=== PATIENT | male | born 1990 | race Caucasian/White ===

== ENCOUNTER 2020-11-24 08:44 | Emergency (ER) | payer OTHER ==
[~2020-11-24 08:44] MED LIST: CIPRO500 MG PO; METRONIDAZOLE500 MG PO
[2020-11-24 09:40] LABS: BASOPHIL 0.3 % (0-2); EOSINOPHIL 0.3 % (0-5); HCT 47.6 % (42.0-52.0); HGB 16.3 g/dl (13.2-18.0); MCH 29.9 pg (25.0-31.0); MCHC 34.2 g/dL (32.0-36.0); MCV 87.2 fL (78.0-100.0); MONOCYTE 8.8 % (0-12); MPV 8.8 fL (6.0-9.5); NRBC 0; PLT 261 K/uL (150-400); RBC 5.46 M/uL (4.70-6.00); RDW 12.3 % (11.5-14.0); WBC 15.3 K/uL (4.0-10.5)
[2020-11-24 09:41] LABS: BILIRUBIN 1+ mg/dL (NEGATIVE); BLOOD NEGATIVE Ery/uL (NEGATIVE); CLARITY CLEAR (CLEAR); COLOR YELLOW (YELLOW); GLUCOSE (U) NORMAL (NORMAL); LEUKOCYTES NEGATIVE Leu/uL (NEGATIVE); NITRITE NEGATIVE (NEGATIVE); PROTEIN NEGATIVE (NEGATIVE); SPECIFIC GRAVITY >=1.030 (1.001-1.030); UROBILINOGEN 0.2 mg/dL (0.2-1.0)
[2020-11-24 10:00] LABS: ALBUMIN 4.3 g/dL (3.4-5.0); BILIRUBIN - TOTAL 1.1 mg/dL (0.2-1.0); CREATININE 0.91 mg/dL (0.67-1.17); GLOBULIN (CALCULATION) 3.7 g/dL; POTASSIUM 3.7 mmol/L (3.5-5.1)
[2020-11-24] MEDS ORDERED: ONDANSETRON ODT4 MG PO (11:48)
[2020-11-24] MEDS ORDERED: LEVAQUIN500 MG PO (11:48)
[2020-11-24] MEDS ORDERED: METRONIDAZOLE500 MG PO (11:48)
[2020-11-24] MEDS ORDERED: COLACE100 M1 PO (11:48)
[2020-11-24] MEDS ORDERED: NORCO 5-325 TA1 EACH PO (11:48)
== END 2020-11-24 12:23 | disposition home or self-care (01) ==
LOC: FER 08:44
PROVIDERS: Emergency Medicine
DX: Z53.8 Procedure and treatment not carried out for other reasons (principal)
CPT/HCPCS: 36415; 80053; 81003; 83690; 85025; J1170; J2405; J2543

== ENCOUNTER 2020-11-25 20:34 | Inpatient (IN) | payer OTHER ==
[~2020-11-25 20:34] MED LIST changes: +COLACE100 M1 PO; +LEVAQUIN500 MG PO; +NORCO 5-325 TA1 EACH PO; +ONDANSETRON ODT4 MG PO
[2020-11-25 21:12] LABS: BASOPHIL 0.1 % (0-2); EOSINOPHIL 0 % (0-5); HCT 44.3 % (42.0-52.0); HGB 15.1 g/dl (13.2-18.0); LYMPHOCYTE 8.3 % (15-48); MCH 29.8 pg (25.0-31.0); MCHC 34.1 g/dL (32.0-36.0); MCV 87.4 fL (78.0-100.0); MPV 8.6 fL (6.0-9.5); NEUTROPHIL 82.3 % (41-80); NRBC 0; PLT 236 K/uL (150-400); RBC 5.07 M/uL (4.70-6.00); RDW 12.3 % (11.5-14.0); WBC 16.7 K/uL (4.0-10.5)
[2020-11-25 21:35] LABS: ALBUMIN 3.7 g/dL (3.4-5.0); BILIRUBIN - TOTAL 2.1 mg/dL (0.2-1.0); BUN/CREAT RATIO (CALC) 7.8 RATIO; CREATININE 1.02 mg/dL (0.67-1.17); GLOBULIN (CALCULATION) 4.2 g/dL; POTASSIUM 3.9 mmol/L (3.5-5.1); TOTAL PROTEIN 7.9 g/dL (6.4-8.2)
[2020-11-25 21:38] LABS: BILIRUBIN NEGATIVE (NEGATIVE); BLOOD NEGATIVE Ery/uL (NEGATIVE); CLARITY CLEAR (CLEAR); COLOR YELLOW (YELLOW); GLUCOSE (U) NORMAL (NORMAL); LEUKOCYTES NEGATIVE Leu/uL (NEGATIVE); NITRITE NEGATIVE (NEGATIVE); PROTEIN NEGATIVE (NEGATIVE); SPECIFIC GRAVITY 1.025 (1.001-1.030); UROBILINOGEN 0.2 mg/dL (0.2-1.0); pH 6.5 (5.0-9.0)
[2020-11-25 23:13] LABS: LACTIC ACID 0.8 mmol/L (0.4-1.9)
[2020-11-26 00:09] LABS: CORONAVIRUS 2019 SARS-COV-2 POSITIVE (NEGATIVE); INFLUENZA A NAA NEGATIVE (NEGATIVE)
[2020-11-26 05:55] LABS: BASOPHIL 0.2 % (0-2); EOSINOPHIL 0.2 % (0-5); HCT 40.7 % (42.0-52.0); HGB 13.5 g/dl (13.2-18.0); LYMPHOCYTE 17.8 % (15-48); MCH 29.5 pg (25.0-31.0); MCHC 33.2 g/dL (32.0-36.0); MCV 89.1 fL (78.0-100.0); MONOCYTE 9.7 % (0-12); NEUTROPHIL 71.8 % (41-80); NRBC 0; PLT 235 K/uL (150-400); RBC 4.57 M/uL (4.70-6.00); RDW 12.2 % (11.5-14.0); WBC 11.8 K/uL (4.0-10.5)
[2020-11-26 06:10] LABS: ALBUMIN 3.1 g/dL (3.4-5.0); BILIRUBIN - TOTAL 1.5 mg/dL (0.2-1.0); BUN/CREAT RATIO (CALC) 8.7 RATIO; CREATININE 1.03 mg/dL (0.67-1.17); GLOBULIN (CALCULATION) 3.8 g/dL; POTASSIUM 3.7 mmol/L (3.5-5.1); TOTAL PROTEIN 6.9 g/dL (6.4-8.2)
[2020-11-27 06:56] LABS: BASOPHIL 0.4 % (0-2); EOSINOPHIL 1.3 % (0-5); HCT 39.4 % (42.0-52.0); HGB 13.1 g/dl (13.2-18.0); LYMPHOCYTE 24.2 % (15-48); MCH 29.8 pg (25.0-31.0); MCHC 33.2 g/dL (32.0-36.0); MCV 89.7 fL (78.0-100.0); MONOCYTE 10.2 % (0-12); NEUTROPHIL 63.6 % (41-80); NRBC 0; PLT 247 K/uL (150-400); RBC 4.39 M/uL (4.70-6.00); RDW 12.2 % (11.5-14.0); WBC 7.6 K/uL (4.0-10.5)
[2020-11-27 07:25] LABS: ALKALINE PHOSHATASE 54 U/L (46-116); ALT 33 U/L (16-63); AST 15 U/L (15-37); BILIRUBIN - TOTAL 0.7 mg/dL (0.2-1.0); BUN 8 mg/dL (7-18); C-REACTIVE PROTEIN >18.00 mg/dL (<=0.90); CHLORIDE 103 mmol/L (98-107); CO2 (BICARBONATE) 27 mmol/L (21-32); CREATININE 1.14 mg/dL (0.67-1.17); GLOBULIN (CALCULATION) 3.8 g/dL; GLUCOSE 80 mg/dL (74-106); TOTAL PROTEIN 6.8 g/dL (6.4-8.2)
[2020-11-28 03:42] LABS: BASOPHIL 0.4 % (0-2); EOSINOPHIL 1.6 % (0-5); HCT 38.1 % (42.0-52.0); HGB 12.8 g/dl (13.2-18.0); LYMPHOCYTE 27.8 % (15-48); MCH 29.8 pg (25.0-31.0); MCHC 33.6 g/dL (32.0-36.0); MCV 88.8 fL (78.0-100.0); MPV 8.8 fL (6.0-9.5); NEUTROPHIL 60.9 % (41-80); NRBC 0; PLT 270 K/uL (150-400); RBC 4.29 M/uL (4.70-6.00); WBC 7.9 K/uL (4.0-10.5)
[2020-11-28 04:03] LABS: BUN/CREAT RATIO (CALC) 7.8 RATIO; C-REACTIVE PROTEIN 11.1 mg/dL (<=0.90); CREATININE 1.03 mg/dL (0.67-1.17); POTASSIUM 3.8 mmol/L (3.5-5.1)
[2020-11-29 06:18] LABS: BASOPHIL 0.3 % (0-2); EOSINOPHIL 1.6 % (0-5); HCT 40.2 % (42.0-52.0); HGB 13.6 g/dl (13.2-18.0); LYMPHOCYTE 23.8 % (15-48); MCH 29.6 pg (25.0-31.0); MCHC 33.8 g/dL (32.0-36.0); MCV 87.6 fL (78.0-100.0); MONOCYTE 8.4 % (0-12); MPV 8.7 fL (6.0-9.5); NEUTROPHIL 65.6 % (41-80); NRBC 0; PLT 279 K/uL (150-400); RBC 4.59 M/uL (4.70-6.00)
[2020-11-29 07:06] LABS: ALBUMIN 3.1 g/dL (3.4-5.0); BILIRUBIN - TOTAL 0.7 mg/dL (0.2-1.0); BUN/CREAT RATIO (CALC) 5.7 RATIO; CREATININE 1.05 mg/dL (0.67-1.17); GLOBULIN (CALCULATION) 3.7 g/dL; POTASSIUM 3.8 mmol/L (3.5-5.1); TOTAL PROTEIN 6.8 g/dL (6.4-8.2)
[2020-11-30 03:51] LABS: BASOPHIL 0.2 % (0-2); EOSINOPHIL 0.8 % (0-5); HCT 42.2 % (42.0-52.0); HGB 14.6 g/dl (13.2-18.0); MCHC 34.6 g/dL (32.0-36.0); MCV 86.7 fL (78.0-100.0); MONOCYTE 7.4 % (0-12); MPV 8.6 fL (6.0-9.5); NEUTROPHIL 74.2 % (41-80); NRBC 0; PLT 293 K/uL (150-400); RBC 4.87 M/uL (4.70-6.00); WBC 11.2 K/uL (4.0-10.5)
[2020-11-30 04:19] LABS: ALBUMIN 3.2 g/dL (3.4-5.0); BILIRUBIN - TOTAL 0.5 mg/dL (0.2-1.0); BUN/CREAT RATIO (CALC) 5.5 RATIO; C-REACTIVE PROTEIN 4.3 mg/dL (<=0.90); CREATININE 0.91 mg/dL (0.67-1.17); GLOBULIN (CALCULATION) 3.7 g/dL; POTASSIUM 3.6 mmol/L (3.5-5.1); TOTAL PROTEIN 6.9 g/dL (6.4-8.2)
[2020-11-30] MEDS ORDERED: METRONIDAZOLE500 MG PO (15:06)
[2020-11-30] MEDS ORDERED: AUGMENTIN 875-1 EACH PO (15:06)
== END 2020-11-30 16:16 | disposition home or self-care (01) | DRG 871 ==
LOC: FER 20:34 → FMS 23:13
PROVIDERS: Emergency Medicine; Internal Medicine; Nurse Practitioner; ADMIT Internal Medicine
PROC: 8E0ZXY6 Isolation (ICD-10-PCS; principal; 2020-11-25)
DX: A41.9 Sepsis, unspecified organism (principal); U07.1 COVID-19; K57.20 Diverticulitis of large intestine with perforation and abscess without bleeding; D69.3 Immune thrombocytopenic purpura
CPT/HCPCS: 36415; 80048; 80053; 81003; 82728; 83605; 83690; 85025; 86140; J1170; J2270; J2405; J2543; J2550; J7030; Q9967; U0002